=== PATIENT | male | born 1985 | race Caucasian/White ===

== ENCOUNTER 2020-05-13 22:02 | Emergency (ER) | payer OTHER, MEDICAID, SELFPAY ==
[2020-05-13 22:37] VITALS: BP 121/69; PULSE 90; RESP 17; TEMP 36.8; O2SAT 99; BMI 21.5
--- NOTE | 2020-05-13 23:33 | ED_ITS ---
HPI - General Adult General Chief complaint: Dental/Oral Stated complaint: LEFT SIDE TOOTH ACHE NUMBER 20 TOOTH Time Seen by Provider: 05/13/20 23:27 Source: patient Mode of arrival: Ambulatory Limitations: no limitations History of Present Illness HPI narrative: Patient is a 34-year-old male here for evaluation of a left lower tooth last jaw ache. He states it has been there for the past couple days. He did see a dentist this morning who gave him a prescription for antibiotics and told him that he did need intervention however that was going to be several thousand dollars. He states that the pharmacy told him his prescription for antibiotics was not going to be available until Saturday. He states that he has been taking ibuprofen without any improvement. Related Data Previous Rx's Medication Instructions Recorded benzonatate 100 mg capsule 100 mg PO TID PRN #20 cap 03/22/18 Allergies Allergy/AdvReac Type Severity Reaction Status Date / Time No Known Drug Allergies Allergy Verified 03/22/18 12:51 Review of Systems Constitutional Constitutional: Denies fever(s) ENT Ears, Nose, Mouth, and Throat: Denies facial pain, Denies sore throat, Denies throat swelling and Denies tongue swelling Comments: Dental pain Cardiovascular Cardiovascular: Denies dyspnea Respiratory Respiratory: Denies dyspnea Integumentary/Breasts Comments: Swelling left jaw Neurologic Neurologic: Denies behavioral changes Psychiatric Psychiatric: Denies behavioral changes Hematologic/Lymphatic On Anticoagulants: No Allergic/Immunologic Allergic/Immunologic: Denies urticaria, Denies throat swelling and Denies tongue swelling Patient History Medical History Abdominal pain Social History Smoking Status: Former smoker Smoking Status: Former smoker alcohol intake frequency: a few times a week Substance Use Type: marijuana Exam Initial Vital Signs Initial Vital Signs: Vital Signs Temperature 98.2 F 05/13/20 22:37 Pulse Rate 90 05/13/20 22:37 Respiratory Rate 17 05/13/20 22:37 Blood Pressure 121/69 05/13/20 22:37 Pulse Oximetry 99 05/13/20 22:37 Const General: cooperative and comfortable Limitations: mental status not altered HENMT Head: normal to inspection and normocephalic Ears: hearing grossly normal bilaterally Face and sinus: no crepitus, no erythema and tenderness on the left mandible Mouth: lip normal and tongue normal Teeth and gingiva: fair dentition Throat: posterior oropharynx normal Neck Lymphatic: No lymphadenopathy Skin Lesions: no lesions Rashes: no rashes Neuro General: patient alert and patient awake Extrem General: capillary refill normal Psych Appearance: well kempt Procedures Nerve Block Nerve Block 1: Time out performed: Yes Local Anesthetic: lidocaine 1% Amount of anesthesia used (mL): 2 Side: left Intraoral Nerve Block: inferior alveolar Procedure Successful: Yes Patient Tolerated Procedure: Well and No complications Complications: none Course Orders Ordered: Discontinued Medications Hydrocodone Bitart/Acetaminophen (Hydrocodone/Acet 5/325 Prepack) 1 bottle MISC SEEINSTR ONE Stop: 05/14/20 00:13 Last Admin: 05/14/20 00:25 Dose: 1 bottle Documented by: VICENTA Amoxicillin/Clavulanate Potassium (Amoxicillin/Clav 875/125 Mg) 1 tab PO NOW ONE Stop: 05/14/20 00:13 Last Admin: 05/14/20 00:25 Dose: 1 tab Documented by: VICENTA Lidocaine HCl (Lidocaine 1% (Pf)) 2 ml SUBCUT NOW ONE Stop: 05/13/20 23:34 Last Admin: 05/14/20 00:08 Dose: 2 ml Documented by: MARK Vital Signs Vital signs: Vital Signs - 8 hr 05/13/20 22:37 05/14/20 00:31 Temperature 98.2 F Pulse Rate 90 89 Respiratory Rate 17 18 Blood Pressure 121/69 118/64 Pulse Oximetry 99 100 Medical Decision Making [facility] Narrative Medical decision making narrative: Tooth 20. Does appear to have a cavity. He does have some fluctuance in his left mandibular area however there is no changes of the skin over the area. There is no intra oral abscess that is amenable to drainage here in the ER. He was given a dose of antibiotics here in the emergency department for hers with class because he could not pick them up. He was given a nerve block to try to improve his symptoms. He did express understanding that this was not a permanent solution to his issue. He was given return precautions and follow-up instructions. He expressed understanding and agreement. Discharge Plan Departure Patient Disposition: Home Clinical Impression: Dental abscess Instructions: DI for Dental Pain Activity Restrictions/Additional Instructions: I do recommend that you take the antibiotics as directed. Continue is a Tylenol and/or ibuprofen for discomfort. Return to the emergency department for any new or worsening symptoms Prescriptions: No Action benzonatate [Tessalon Perles] 100 mg capsule 100 mg PO TID PRN (Reason: cough) Qty: 20 RF: 0
[2020-05-14] MEDS: LIDOCAINE 1% (PF) 2 ML SUBCUT (00:08)
[2020-05-14] MEDS: AMOXICILLIN/CLAV 875/125 MG 1 TAB PO (00:25)
[2020-05-14] MEDS: HYDROCODONE/ACET 5/325 PREPACK 1 BOTTLE MISC (00:25)
[2020-05-14 00:31] VITALS: BP 118/64; PULSE 89; RESP 18; O2SAT 100
== END 2020-05-14 00:29 | disposition home or self-care (01) ==
PROVIDERS: Emergency Provider Emergency Medicine
DX: K04.7 Periapical abscess without sinus (principal)
CPT/HCPCS: 64450; 99283